=== PATIENT | male | born 1990 | race African-American/Black ===

== ENCOUNTER 2024-06-13 10:53 | Emergency (ER) | payer MEDICAID ==
[~2024-06-13] VITALS: Ht 188 cm; Wt 109.0 kg
[2024-06-13 10:56] VITALS: BP 126/84; PULSE 110; RESP 18; TEMP 98.4; O2SAT 96
[2024-06-13] MEDS ORDERED: ACETAMINOPHEN 325MG TABLET PO ONE (11:45)
[2024-06-13] MEDS ORDERED: TOPUD PO (13:53)
== END 2024-06-13 20:16 | disposition home or self-care (01) ==
LOC: ER 11:23
DX: N50.819 Testicular pain, unspecified (principal); F20.9 Schizophrenia, unspecified; J45.909 Unspecified asthma, uncomplicated
CPT/HCPCS: 76870; 93976; 99284